=== PATIENT | female | born 1995 | race Caucasian/White ===

== ENCOUNTER 2016-12-28 15:55 | Observation (INO) | payer MEDICAID ==
[2016-12-28] MEDS ORDERED: PRENA1 CHEW TA1.4 M1 PO (17:12)
== END 2016-12-28 18:30 ==
LOC: LDR 15:55
PROVIDERS: ADMIT Obstetrics & Gynecology
DX: O47.1 False labor at or after 37 completed weeks of gestation (principal); Z3A.38 38 weeks gestation of pregnancy

== ENCOUNTER 2016-12-28 20:14 | Inpatient (IN) | payer MEDICAID ==
[~2016-12-28 20:14] MED LIST: PRENA1 CHEW TA1.4 M1 PO
[2016-12-28 23:19] LABS: BASO % 0.1 % (0-2); EOS % 0.1 % (0-7); HGB-HEMOGLOBIN 11.1 gm/dl (12.0-15.5); IMMATURE GRANULOCYTES ABSOLUTE 0.03 tho/cmm (0-0.03); IMMATURE GRANULOCYTES PERCENT 0.3 % (0-0.3); LYMPH % 11.6 % (20-45); LYMPH ABSOLUTE COUNT 1.3 tho/cmm (0.8-4.5); MCH (MEAN CORPUSCULAR HGB) 30.4 pg (28.0-32.0); MCHC MEAN CORPUSCULAR HGB CONC 33.6 % (32.0-36.0); MCV (MEAN CELL VOLUME) 90.4 fl (82.0-96.0); MEAN PLATELET VOLUME 10.5 cmc (9.4-12.4); MONO % 5.6 % (0-12); MONOCYTE ABSOLUTE COUNT 0.6 tho/cmm (0.0-1.2); NEUTROPHIL ABSOLUTE COUNT 9.2 tho/cmm (1.6-8.0); NEUTROPHIL-AUTOMATED 9.2 tho/cmm (1.6-8.0); NEUTROPHILS % 82.3 % (40-80); PLATELET COUNT 146 tho/cmm (150-450); RED BLOOD COUNT 3.65 mil/cmm (4.00-5.20); RED CELL DISTRIBUTION WIDTH 13.1 % (12.4-16.4); WHITE BLOOD COUNT 11.2 tho/cmm (4.0-10.0)
[2016-12-30 06:41] LABS: BASO % 0.2 % (0-2); EOS % 1.4 % (0-7); EOSINOPHIL ABSOLUTE COUNT 0.1 tho/cmm (0.0-0.7); HGB-HEMOGLOBIN 10.5 gm/dl (12.0-15.5); IMMATURE GRANULOCYTES ABSOLUTE 0.04 tho/cmm (0-0.03); IMMATURE GRANULOCYTES PERCENT 0.4 % (0-0.3); LYMPH % 21.3 % (20-45); LYMPH ABSOLUTE COUNT 2.2 tho/cmm (0.8-4.5); MCH (MEAN CORPUSCULAR HGB) 30.3 pg (28.0-32.0); MCHC MEAN CORPUSCULAR HGB CONC 32.8 % (32.0-36.0); MCV (MEAN CELL VOLUME) 92.2 fl (82.0-96.0); MEAN PLATELET VOLUME 10.3 cmc (9.4-12.4); MONO % 6.9 % (0-12); MONOCYTE ABSOLUTE COUNT 0.7 tho/cmm (0.0-1.2); NEUTROPHIL ABSOLUTE COUNT 7.2 tho/cmm (1.6-8.0); NEUTROPHIL-AUTOMATED 7.2 tho/cmm (1.6-8.0); NEUTROPHILS % 69.8 % (40-80); PLATELET COUNT 128 tho/cmm (150-450); RED BLOOD COUNT 3.47 mil/cmm (4.00-5.20); RED CELL DISTRIBUTION WIDTH 13.5 % (12.4-16.4); WHITE BLOOD COUNT 10.3 tho/cmm (4.0-10.0)
[2016-12-31] MEDS ORDERED: IBUPROFEN800 M1 PO (00:14)
[2016-12-31] MEDS ORDERED: NORCO 5-325 TA1 EACH PO (00:14)
== END 2016-12-31 13:30 | DRG 775 ==
LOC: LDR 20:14 → OBGD 12-29 05:40
PROVIDERS: ADMIT Obstetrics & Gynecology
PROC: 10E0XZZ Delivery of Products of Conception, External Approach (ICD-10-PCS; principal; 2016-12-29)
PROC: 0HQ9XZZ Repair Perineum Skin, External Approach (ICD-10-PCS; 2016-12-29)
DX: O70.0 First degree perineal laceration during delivery (principal); Z37.0 Single live birth; Z3A.38 38 weeks gestation of pregnancy
CPT/HCPCS: J2590